=== PATIENT | male | born 1955 | race Caucasian/White ===

== ENCOUNTER 2018-04-08 19:36 | Emergency (ER) | payer OTHER ==
[2018-04-08 21:48] LABS: ABSOLUTE BASOPHILS # (AUTO) 0.1 10^3/uL (0.0-0.2); ABSOLUTE EOSINOPHILS # (AUTO) 0.1 10^3/uL (0.0-0.6); ABSOLUTE LYMPHOCYTES (AUTO) 0.6 10^3/uL (0.5-4.7); ABSOLUTE MONOCYTES (AUTO) 0.5 10^3/uL (0.1-1.4); ABSOLUTE NEUT (AUTO) 8.8 10^3/uL (1.7-8.2); BASOPHILS % (AUTO) 0.6 % (0-2); EOSINOPHILS % (AUTO) 0.9 % (0-6); HEMATOCRIT 47.4 % (37.9-51.0); HEMOGLOBIN 16.5 g/dL (13.5-17.0); LYMPHOCYTES % (AUTO) 5.9 % (13-45); MEAN CORPUSCULAR HEMOGLOBIN 31.9 pg (27.0-33.4); MEAN CORPUSCULAR HGB CONC 34.7 g/dL (32.0-36.0); MEAN CORPUSCULAR VOLUME 92 fl (80-97); MONOCYTES % (AUTO) 4.5 % (3-13); PLATELET COUNT 197 10^3/uL (150-450); RED BLOOD COUNT 5.17 10^6/uL (4.35-5.55); RED CELL DISTRIBUTION WIDTH 13.3 % (11.5-14.0); SEGMENTED NEUTROPHILS % (AUTO) 88.1 % (42-78); TOTAL CELLS COUNTED % (AUTO) 100 %
[2018-04-08 21:49] LABS: APPEARANCE,URINE SLIGHTLY-CLOUDY; BILIRUBIN,URINE NEGATIVE (NEGATIVE); CALCIUM OXALATE CRYSTALS,URINE FEW /HPF; GLUCOSE, URINE NEGATIVE (NEGATIVE); KETONES,URINE TRACE mg/dL (NEGATIVE); LEUKOCYTE ESTERASE,URINE NEGATIVE (NEGATIVE); NITRITE,URINE NEGATIVE (NEGATIVE); PROTEIN,URINE 30 mg/dL (NEGATIVE); URINE SPECIFIC GRAVITY 1.031
[2018-04-08 21:51] LABS: COLOR,URINE YELLOW
[2018-04-08] MEDS ORDERED: FENTANYL CITRATE INJ/PF 100 MCG/2 ML AMPUL IV ONE (22:31)
[2018-04-08] MEDS ORDERED: KETOROLAC TROMETHAMINE INJ/PF 30 MG/1 ML SDV IV ONE (22:31)
[2018-04-08 22:44] LABS: ALANINE AMINOTRANSFERASE 34 U/L (21-72); ALBUMIN 4.3 g/dL (3.5-5.0); ALKALINE PHOSPHATASE 73 U/L (38-126); ANION GAP 9 (5-19); ASPARTATE AMINO TRANSFERASE 25 U/L (17-59); BILIRUBIN,DIRECT 0.3 mg/dL (0.0-0.4); BILIRUBIN,TOTAL 0.7 mg/dL (0.2-1.3); BLOOD UREA NITROGEN 21 mg/dL (7-20); CALCIUM 9.5 mg/dL (8.4-10.2); CARBON DIOXIDE 26 mmol/L (22-30); CHLORIDE 107 mmol/L (98-107); GLUCOSE 110 mg/dL (75-110); LIPASE 569.1 U/L (23-300); POTASSIUM 3.6 mmol/L (3.6-5.0); SODIUM 141.6 mmol/L (137-145); TOTAL PROTEIN 7.1 g/dL (6.3-8.2)
[2018-04-08] MEDS ORDERED: ONDANSETRON HCL INJ/PF 4 MG/2 ML SDV IV ONE (23:17)
--- NOTE | 2018-04-08 23:40 | RADIOLOGY REPORT (SQ) ---
EXAM DESCRIPTION: CT abdomen and pelvis WITHOUT IV CONTRAST COMPLETED DATE/TME: 04/08/2018 22:31 CLINICAL HISTORY: Right-sided abdominal pain. COMPARISON: 05/14/2015 TECHNIQUE: CT of the abdomen and pelvis without IV contrast. Evaluation of the solid organs and vasculature is suboptimal due to lack of IV contrast. DLP: 1030.30 mGy-cm FINDINGS: Lung Bases: The visualized lung bases are clear. Bones: No destructive bone lesions identified. Mild endplate spondylosis. Degenerative change of the hips. Abdomen: Liver: The liver has normal size and density. Gallbladder: No calcified gallstones. Spleen, Pancreas, and Adrenal Glands: Subtle increase in size of hypodensity in the spleen may represent a cyst or hemangioma. The pancreas and adrenal glands are unremarkable. Kidneys: There is a 0.4 cm obstructing calculus at the right UVJ producing mild right hydroureter and hydronephrosis. Punctate nonobstructing inferior pole left renal calculus. Punctate nonfasting inferior pole right renal calculus. Vasculature: The aorta and IVC have normal caliber and position. Stomach: The stomach and duodenum have normal course. Other: No free intraperitoneal air. No free fluid or lymphadenopathy. Pelvis: Bladder: Urinary bladder is otherwise unremarkable. Bowel: Scattered diverticula of the colon. No definite colonic wall thickening or pericolic inflammatory change. No dilated loops of large or small bowel. Appendix: Normal appendix. Pelvis: Small bilateral fat-containing inguinal hernias. Prostate is not enlarged. IMPRESSION: 1. There is a 0.4 cm obstructing calculus at the right UVJ producing mild right hydroureter and hydronephrosis. 2. Punctate bilateral nonobstructing nephrolithiasis. This exam was performed according to our departmental dose-optimization program, which includes automated exposure control, adjustment of the mA and/or kV according to patient size and/or use of iterative reconstruction technique.
--- NOTE | 2018-04-09 00:11 | ER Document Report ---
ED General - General Chief Complaint: Flank Pain Stated Complaint: RIGHT SIDE BACK PAIN Time Seen by Provider: 04/08/18 22:03 TRAVEL OUTSIDE OF THE [place] IN LAST 30 DAYS: No - HPI Onset: Other - 8-year-old man with a history of a single nephrolithiasis in the past who presents for evaluation of right sided flank pain. Began today, he has had associated dysuria and cramping into the pelvis. Denies any fever, denies any chills, denies any chest pain shortness of breath lightheadedness diaphoresis rashes or other trauma to the area. - Related Data Allergies/Adverse Reactions: No Known Allergies Allergy (Unverified 05/14/15 03:16) Past Medical History - General Information source: Patient, Relative - Social History Smoking Status: Never Smoker Chew tobacco use (# tins/day): No Frequency of alcohol use: None Drug Abuse: None Family History: Reviewed & Not Pertinent Patient has suicidal ideation: No Patient has homicidal ideation: No Renal/ Medical History: Denies: Hx Peritoneal Dialysis - Immunizations Hx Diphtheria, Pertussis, Tetanus Vaccination: Yes Review of Systems - Review of Systems -: Yes All other systems reviewed and negative Physical Exam - Vital signs Vitals: Temp Pulse Resp BP Pulse Ox 97.4 F 71 20 177/92 H 100 04/08/18 19:45 04/08/18 19:45 04/08/18 19:45 04/08/18 19:45 04/08/18 19:45 - General General appearance: Appears well In distress: None - HEENT Head: Normocephalic Eyes: Normal Conjunctiva: Normal Cornea: Normal Extraocular movements intact: Yes Eyelashes: Normal Pupils: PERRL - Respiratory Respiratory status: No respiratory distress Chest status: Nontender Breath sounds: Normal Chest palpation: Normal - Cardiovascular Rhythm: Regular Heart sounds: Normal auscultation Murmur: No - Abdominal Inspection: Normal Distension: No distension Tenderness: Nontender Organomegaly: No organomegaly - Back Back: CVA tenderness - Extremities General upper extremity: Normal inspection, Nontender, Normal ROM, Normal strength General lower extremity: Normal inspection, Nontender, Normal ROM, Normal strength - Neurological Neuro grossly intact: Yes Cognition: Normal Orientation: AAOx4 Malorie Coma Scale Eye Opening: Spontaneous Malorie Coma Scale Verbal: Oriented Malorie Coma Scale Motor: Obeys Commands [place] Coma Scale Total: 15 Speech: Normal Cranial nerves: Normal Cerebellar coordination: Normal Motor strength normal: LUE, RUE, LLE, RLE - Psychological Associated symptoms: Normal affect Course - Re-evaluation Re-evalutation: 04/09/18 03:16 8-year-old man with symptoms concerning for nephrolithiasis. Has had nephrolithiasis in the past which did require lithotripsy as a result of its size. He has had instrumentation in the past because of the size of his renal stone will plan for CT imaging. We will administer analgesia via the IV, will obtain urinalysis as well. Patient's creatinine is relatively unremarkable, his urinalysis does not demonstrate an obvious infection at this time. CT imaging of the abdomen and pelvis demonstrates a 2 mm stone which is nearly at the bladder. We will plan for this patient undergo discharge with encouraged follow-up in a urologist as well as expulsive therapy and narcotic analgesia for pain control. Encouraged the use of NSAIDs for assistance with his pain at home. He is in agreement at this time, this does not seem to represent any other more insidious underlying abdominal pathology such as but not limited to AAA, ischemic colitis, appendicitis. Incidentally identified was an elevated lipase for this patient which I did speak with him about, he does not endorse any alcohol use or previous episodes of pancreatitis with this is an incidental finding and unremarkable at this time. - Vital Signs Vital signs: Temp Pulse Resp BP Pulse Ox 98.1 F 93 18 160/90 H 93 04/09/18 00:31 04/09/18 00:31 04/09/18 00:31 04/09/18 00:31 04/09/18 00:31 - Laboratory Result Diagrams: 04/08/18 21:25 04/08/18 22:20 Laboratory results interpreted by me: 04/08/18 04/08/18 04/08/18 21:25 21:25 22:20 Seg Neutrophils % 88.1 H Lymphocytes % 5.9 L Absolute Neutrophils 8.8 H BUN 21 H Lipase 569.1 H Urine Protein 30 H Urine Ketones TRACE H Urine Blood SMALL H Urine Urobilinogen 2.0 H Discharge - Discharge Clinical Impression: Kidney stone on right side Condition: Good Disposition: HOME, SELF-CARE Instructions: Kidney Stone ([facility]) Prescriptions: Ondansetron [Zofran Odt 4 mg Tablet] 4 mg PO Q4HP PRN #30 tab.rapdis PRN Reason: Hydrocodone/Acetaminophen [[place] 5-325 mg Tablet] 1 tab PO Q6H #16 tablet Tamsulosin HCl [Flomax 0.4 mg Cap.sr] 0.4 mg PO DAILY #7 cap.sr.24h Referrals: AGUILA BUTT MD [Primary Care Provider] - Follow up as needed
[2018-04-09 00:35] VITALS: BP 160/90
== END 2018-04-09 00:57 | disposition home or self-care (01) ==
LOC: ER 19:36
DX: N13.2 Hydronephrosis with renal and ureteral calculous obstruction (principal)
CPT/HCPCS: 99284; 96374; 96375; 36415; 83690; 85025; 80053; 81001; 76380; J3010; J1885; J2405